=== PATIENT | female | born 1955 | race Caucasian/White ===

== ENCOUNTER 2019-12-17 08:52 | Emergency (ER) | payer BC, OTHER ==
[2019-12-17] MEDS ORDERED: Meclizine 25 MG Tab PO ONE (09:59)
--- NOTE | 2019-12-17 10:03 | EDM.PDOC ---
ED HPI GENERAL MEDICAL PROBLEM - General Chief Complaint: Cardiovascular Problem Stated Complaint: DIZZY HIGH HEADED Time Seen by Provider: 12/17/19 10:00 Source of Information: Reports: Patient History Limitations: Reports: No Limitations - History of Present Illness INITIAL COMMENTS - FREE TEXT/NARRATIVE: PT ARRIVED WITH A HISTORY OF BEING DIZZY FOR THE PAST WEEKEND AND HAVING SOME HEADACHES. sHE DID CHECK HER BP AT HOME AND DID FIND IT TO BE ELEVATED. Onset: Gradual Duration: Day(s): Location: Reports: Head, Generalized Associated Symptoms: Reports: Headaches - Related Data Allergies Allergy/AdvReac Type Severity Reaction Status Date / Time Sulfa (Sulfonamide Allergy Anaphylactic Verified 12/17/19 09:27 Antibiotics) Shock Home Meds: Home Meds NK [No Known Home Meds] 12/17/19 [History] Past Medical History HEENT History: Reports: Impaired Vision [employer] History: Reports: Neurological History: Reports: Migraines Social & Family History - Tobacco Use Smoking Status *Q: Never Smoker - Caffeine Use Caffeine Use: Reports: None - Recreational Drug Use Recreational Drug Use: No ED ROS GENERAL - Review of Systems Review Of Systems: See Below Constitutional: Reports: No Symptoms HEENT: Reports: No Symptoms Respiratory: Reports: No Symptoms Cardiovascular: Reports: Blood Pressure Problem, Lightheadedness Endocrine: Reports: No Symptoms GI/Abdominal: Reports: No Symptoms : Reports: No Symptoms Musculoskeletal: Reports: No Symptoms Skin: Reports: No Symptoms Neurological: Reports: Dizziness, Headache Psychiatric: Reports: Anxiety ED EXAM, GENERAL - Physical Exam Exam: See Below Free Text/Narrative:: pt arrived with a history of feeling off balance and she was found to be hypertensive. She checked her bp at home and it was elevated. Exam Limited By: No Limitations General Appearance: Alert, No Apparent Distress, Anxious Ears: Normal TMs Nose: Normal Inspection Throat/Mouth: Normal Inspection Neck: Normal Inspection Respiratory/Chest: No Respiratory Distress Cardiovascular: Regular Rate, Rhythm GI/Abdominal: Soft, Non-Tender (Female) Exam: Deferred Rectal (Female) Exam: Deferred Back Exam: Normal Inspection Extremities: Normal Inspection Neurological: Alert Course - Vital Signs Last Recorded V/S: Last Vital Signs Temp 36.7 C 12/17/19 09:24 Pulse 81 12/17/19 11:43 Resp 14 12/17/19 11:43 BP 197/100 H 12/17/19 11:43 Pulse Ox 93 L 12/17/19 11:43 Orthostatic Blood Pressure [ 194/113 Standing] Orthostatic Blood Pressure [ 172/107 Sitting] Orthostatic Blood Pressure [ 193/100 Supine] - Orders/Labs/Meds Orders: Active Orders 24 hr Category Date Time Status EKG Documentation Completion [RC] ASDIRECTED Care 12/17/19 09:59 Active EKG 12 Lead [EK] Routine Ther 12/17/19 09:59 Ordered Labs: Laboratory Tests 12/17/19 12/17/19 12/17/19 Range/Units 09:52 10:03 10:03 WBC 6.5 (4.5-11.0) K/uL RBC 4.92 (3.30-5.50) M/uL Hgb 14.5 (12.0-15.0) g/dL Hct 43.8 (36.0-48.0) % MCV 89 (80-98) fL MCH 30 (27-31) pg MCHC 33 (32-36) % Plt Count 265 (150-400) K/uL Neut % (Auto) 66 (36-66) % Lymph % (Auto) 24 (24-44) % [place] % (Auto) 8 H (2-6) % Eos % (Auto) 1 L (2-4) % Baso % (Auto) 0 (0-1) % Sodium 138 L (140-148) mmol/L Potassium 4.0 (3.6-5.2) mmol/L Chloride 101 (100-108) mmol/L Carbon Dioxide 25 (21-32) mmol/L Anion Gap 16.0 H (5.0-14.0) mmol/L BUN 11 (7-18) mg/dL Creatinine 0.9 (0.6-1.0) mg/dL Est Cr Clr Drug Dosing 64.54 mL/min Estimated GFR (MDRD) > 60 (>60) Glucose 117 H (74-106) mg/dL Calcium 9.1 (8.5-10.1) mg/dL Total Bilirubin 0.5 (0.2-1.0) mg/dL AST 19 (15-37) U/L ALT 28 (12-78) U/L Alkaline Phosphatase 88 (46-116) U/L Total Protein 7.6 (6.4-8.2) g/dL Albumin 4.0 (3.4-5.0) g/dL Globulin 3.6 H (2.3-3.5) g/dL Albumin/Globulin Ratio 1.1 L (1.2-2.2) Urine Color Yellow (YELLOW) Urine Appearance Slightly cloudy A (CLEAR) Urine pH 7.0 (5.0-8.0) Ur Specific [place] 1.020 (1.008-1.030) Urine Protein Negative (NEGATIVE) mg/dL Urine Glucose (UA) Negative (NEGATIVE) mg/dL Urine Ketones Negative (NEGATIVE) mg/dL Urine Occult Blood Small H (NEGATIVE) Urine Nitrite Negative (NEGATIVE) Urine Bilirubin Negative (NEGATIVE) Urine Urobilinogen 0.2 (0.2-1.0) EU/dL Ur Leukocyte Esterase Small H (NEGATIVE) Urine RBC 0-5 (0-5) Urine WBC 0-5 (0-5) Ur Epithelial Cells Few Amorphous Sediment Rare Urine Bacteria Rare Urine Mucus Not seen Meds: Medications Discontinued Medications Generic Name Dose Route Start Last Admin Trade Name Christophe PRN Reason Stop Dose Admin Amlodipine Besylate 2.5 mg 12/17/19 11:15 12/17/19 11:36 Norvasc PO 12/17/19 11:16 2.5 mg ONETIME ONE Administration Meclizine HCl 25 mg 12/17/19 09:59 12/17/19 10:05 Antivert PO 12/17/19 10:00 25 mg ONETIME ONE Administration - Re-Assessments/Exams Free Text/Narrative Re-Assessment/Exam: 12/17/19 11:52 pt was given amlodpine 2.5 mg. She was given antivert 25 and she is feeling better. She does have good labs. Departure - Departure Time of Disposition: 11:43 Disposition: Home, Self-Care 01 Condition: Fair Clinical Impression: Hypertension, Dizziness Referrals: PCP,None [Primary Care Provider] - Forms: ED Department Discharge Care Plan Goals: amlodpine 2.5 mg daily, antivert 25 mg bid for 2 days, low activity, no work today and tomorrow, appt with Dr Diaz on or Monday. Sepsis Event Note - Evaluation Sepsis Screening Result: No Definite Risk - Focused Exam Vital Signs: Vital Signs Temp Pulse Resp BP BP Pulse Ox 12/17/19 11:43 81 14 197/100 H 93 L 05/26/20 11:36 197/100 H 12/17/19 10:45 76 13 188/103 H 97 12/17/19 10:12 78 10 L 176/101 H 97 12/17/19 09:32 75 10 L 181/92 H 94 L 12/17/19 09:24 36.7 C 78 21 H 193/100 H 98 12/17/19 09:22 36.7 C 78 21 H 193/100 H 98 Date Exam was Performed: 12/17/19 Time Exam was Performed: 11:45 - My Orders Last 24 Hours: My Active Orders 12/17/19 09:59 EKG Documentation Completion [RC] ASDIRECTED EKG 12 Lead [EK] Routine - Assessment/Plan Last 24 Hours: My Active Orders 12/17/19 09:59 EKG Documentation Completion [RC] ASDIRECTED EKG 12 Lead [EK] Routine
[2019-12-17] MEDS ORDERED: amLODIPine 5 MG Tab PO ONE (11:15)
[2019-12-17] MEDS ORDERED: Labetalol 100 MG/20 ML MDV IVPUSH ONE (12:22)
== END 2019-12-17 13:20 | disposition home or self-care (01) ==
LOC: JP.ED 08:52
DX: I10 Essential (primary) hypertension (principal); Z88.2 Allergy status to sulfonamides
CPT/HCPCS: 36415; 80053; 81001; 85025; 93005; 99284; A9270; J3490

== ENCOUNTER 2020-01-27 07:10 | Day surgery (SDC) | payer BC, OTHER ==
[~2020-01-27 07:10] MED LIST: Bupivacaine 0.5%/EPINEPHrine 1:200,000 50 ML MDV ONE; Dexamethasone 4 MG/ML SDV ONE; Glycopyrrolate 0.2 MG/ML 5 ML MDV ONE; Neostigmine Methylsulfate 1 MG/ML 5 ML Syringe ONE; Ondansetron 4 MG/2 ML SDV ONE; Propofol 200 MG/20 ML SDV ONE; Rocuronium 50 MG/5 ML Vial ONE; Succinylcholine 200 MG/10 ML MDV ONE; fentaNYL 250 MCG/5 ML SDV ONE
[2020-01-27] MEDS ORDERED: Neomycin/Polymyxin B 1 ML, Sodium Chloride 0.9% 500 ML IRR ONE ×2 (07:30)
[2020-01-27] MEDS ORDERED: Meropenem 500 MG in Sodium Chloride 0.9% 50 ML IV ONE (07:30)
[2020-01-27] MEDS ORDERED: Acetaminophen 500 MG Tab PO ONE (07:30)
[2020-01-27] MEDS ORDERED: Dextrose 5%-Lactated Ringers 1,000 ML IV SCH (07:45)
[2020-01-27] MEDS ORDERED: fentaNYL 250 MCG/5 ML SDV ONE (09:42)
[2020-01-27] MEDS ORDERED: Ketorolac 60 MG/2 ML SDV ONE (09:57)
[2020-01-27] MEDS ORDERED: Sugammadex Sodium 200 MG/2 ML VIAL ONE (10:04)
[2020-01-27] MEDS ORDERED: fentaNYL 100 MCG/2 ML SDV IVPUSH ONE (10:12)
[2020-01-27] MEDS ORDERED: Acetaminophen/oxyCODONE 325-5 MG Tab PO PRN (11:03)
[2020-01-27] MEDS ORDERED: Amoxicillin/Clavulanate K 875-125 MG Tab PO ONE (11:03)
--- NOTE | 2020-01-28 11:52 | OR ---
DATE OF PROCEDURE: 01/27/2020 SURGEON: Aaron Grayson MD PREOPERATIVE DIAGNOSIS: Rectal prolapse with single column of mixed hemorrhoid prolapsing beyond the remaining surrounding mucosa. POSTOPERATIVE DIAGNOSIS: Rectal prolapse with single column of mixed hemorrhoid prolapsing beyond the remaining surrounding mucosa. PROCEDURE: Anal examination under anesthesia with: 1. Single column mixed hemorrhoidectomy (35815). 2. Correction of rectal prolapse by a stapler via perineal approach (83405). ANESTHESIA: General. INDICATION FOR PROCEDURE: This is a 64-year-old female presenting with longstanding problems with prolapsing hemorrhoids. On examination last week, she was noted to have a single column of what appeared to be a mixed hemorrhoid that was prolapsing and was quite reddened and inflamed, but there was a generalized mucosal prolapse, as well as probably some degree of muscular prolapse. Plan is to proceed with excision of the single column that was coming down in a plane below this prolapsed mucosa and then proceed with a stapled proctopexy. Potential risks of the procedure including bleeding, infection, problems with fecal incontinence following the procedure, as well as significant postoperative pain were all reviewed with the patient, and she wishes to proceed. DETAILS OF PROCEDURE: The patient was taken to the operating room, after preoperative Neosporin irrigant enema had been administered. General endotracheal anesthetic was induced and the patient placed in a lithotomy position and a perianal prep then performed. The area was then examined and this confirmed the mixed hemorrhoids prolapsing in a plane below what was otherwise circumferential prolapse. On palpation, there was some degree of muscular prolapse in addition to the mucosa as well, to the extent that a stapled proctopexy should be sufficient to bring that area back up into appropriate location. Initially the mixed hemorrhoid was clamped across the space, excised, and suture-ligated with a running 4-0 Prolene stitch. The proctopexy dilator was then placed and maintaining a plane about 2 to 3 cm above the dentate line, a circumferential pursestring stitch of 3-0 Prolene stitch was placed through the rectal mucosa. This then allowed the anvil of the proctopexy stapler be positioned above the pursestring stitch, and the stapler was then closed after pulling the sutures down through the stapling device. Prior to firing the stapler, palpable vaginal exam was performed, which confirmed there was no imbrication of the vaginal wall by the stapler. Stapler was then fired and held in position for roughly 1 minute to provide some hemostasis and then was opened and withdrawn with a nice circumferential tissue being excised, which was sent for pathology. Inspection at that point showed no significant bleeding or other problems. Stapler appeared to be primarily above the dentate line, perhaps they encroached the dentate lines posteriorly to a short extent, but otherwise, there was very satisfactory reduction of the prolapse. The wound was then anesthetized with 0.5% Marcaine and dressing applied, no packing was placed. The patient was taken to the recovery room in satisfactory condition. There were no evident complications. Aaron Grayson MD /[id number] MTDD
== END 2020-01-27 12:40 | disposition home or self-care (01) ==
LOC: JP.SDS 07:10
PROVIDERS: ATTEND Surgery
DX: K62.3 Rectal prolapse (principal); K64.8 Other hemorrhoids; I10 Essential (primary) hypertension; Z79.899 Other long term (current) drug therapy; Z11.59 Encounter for screening for other viral diseases
CPT/HCPCS: 45541; 46255; 87635; A9270; J0330; J1100; J1885; J2185; J2405; J2704; J2710; J3010; J3490; J7050; J7121; 88304; U0002

== ENCOUNTER 2023-04-01 17:51 | Emergency (ER) | payer MEDICARE, OTHER ==
[2023-04-01] MEDS ORDERED: Sodium Chloride 0.9% 10 ML Syringe FLUSH PRN (18:20)
[2023-04-01] MEDS ORDERED: Meclizine 25 MG Tab PO ONE (18:22)
[2023-04-01] MEDS ORDERED: Sodium Chloride 0.9% 1,000 ML IV SCH (18:30)
[2023-04-01 18:35] LABS: BASOPHILS PERCENT AUTO 0.3 % (0.1-1.3); EOSINOPHILS PERCENT AUTO 0.3 % (0.0-5.4); HEMATOCRIT 39.6 % (34.3-46.0); HEMOGLOBIN 14.2 g/dL (11.2-15.5); IMMATURE GRAN PERCENT AUTO 0.3 % (0.0-0.7); LYMPHOCYTES ABSOLUTE AUTO 1.41 K/uL (0.8-3.3); LYMPHOCYTES PERCENT AUTO 17.9 % (11.4-47.7); MEAN CORPUSCULAR HEMOGLOBIN 30.9 pg (31.6-35.5); MEAN CORPUSCULAR HGB CONC 35.9 g/dL (31.6-35.5); MEAN CORPUSCULAR VOLUME 86.1 fL (81.4-99.0); MONOCYTES ABSOLUTE AUTO 0.58 K/uL (0.20-0.90); MONOCYTES PERCENT AUTO 7.4 % (3.3-12.6); NEUTROPHILS ABSOLUTE AUTO 5.84 K/uL (1.0-7.6); NEUTROPHILS PERCENT AUTO 73.8 % (40.0-78.1); PLATELET COUNT,PLT 246 K/uL (130-375); WHITE BLOOD CELL COUNT,WBC 7.9 K/uL (3.2-11.0)
[2023-04-01 18:36] LABS: BASOPHILS ABSOLUTE AUTO 0.02 K/uL (0.00-0.10); EOSINOPHILS ABSOLUTE AUTO 0.02 K/uL (0.00-0.40); IMMATURE GRAN ABSOLUTE AUTO 0.02 K/uL (0.00-0.23)
[2023-04-01 18:54] LABS: PROTHROMBIN TIME 9.7 sec (9.2-10.6); PTT,PARTIAL THROMBOPLSTIN TIME 22.1 sec (21.8-27.3)
[2023-04-01] MEDS ORDERED: Sodium Chloride 0.9% 10 ML Syringe FLUSH ONE (18:54)
[2023-04-01] MEDS ORDERED: Iopamidol 755 Mg/ML 100 ML Bottle IV SCH (19:00)
[2023-04-01] MEDS ORDERED: Sodium Chloride 0.9% 75 ML IV SCH (19:00)
[2023-04-01 19:01] LABS: A/G RATIO 1.1 (1.2-2.2); ALANINE AMINOTRANSFERASE,ALT 23 U/L (12-78); ALBUMIN 3.7 g/dL (3.4-5.0); ALKALINE PHOSPHATASE 88 U/L (46-116); ANION GAP 14.9 mmol/L (5.0-14.0); ASPARTATE AMNIOTRANSFERASE,AST 19 U/L (15-37); BILIRUBIN TOTAL 0.6 mg/dL (0.2-1.0); BLOOD UREA NITROGEN,BUN 9 mg/dL (7-18); CARBON DIOXIDE,CO2 25 mmol/L (21-32); CHLORIDE,CL 98 mmol/L (100-108); CREATININE 0.8 mg/dL (0.6-1.0); EST CRCL DRUG DOSING (CG) 67.27 mL/min; ESTIMATED GFR 81 mL/min (>60); GLUCOSE RANDOM 151 mg/dL (74-106); POTASSIUM,K 3.9 mmol/L (3.6-5.2); PROTEIN TOTAL,TP 7.1 g/dL (6.4-8.2); SODIUM,NA 134 mmol/L (140-148); TROPONIN I HIGH SENSITIVITY 6.9 pg/mL (<=60.3)
[2023-04-01] MEDS ORDERED: LORazepam 2 MG/ML SDV IVPUSH ONE (19:58)
[2023-04-01] MEDS ORDERED: diphenhydrAMINE 50 MG/ML SDV IVPUSH ONE (20:59)
[2023-04-01] MEDS ORDERED: Ketorolac 30 MG/ML SDV IVPUSH ONE (20:59)
== END 2023-04-02 00:23 | disposition home or self-care (01) ==
LOC: JP.ED 17:51
DX: H81.12 Benign paroxysmal vertigo, left ear (principal); I10 Essential (primary) hypertension; Z88.1 Allergy status to other antibiotic agents
CPT/HCPCS: 36415; 70450; 70496; 70498; 80053; 84484; 85025; 85610; 85730; 93005; 96374; 96375; 99284; A9270; J1200; J1885; J2060; J3490; J7030; Q9967